=== PATIENT | female | born 1990 | race Caucasian/White ===

== ENCOUNTER 2017-08-12 06:54 | Emergency (ER) | payer OTHER | END 2017-08-12 07:40 | disposition home or self-care (01) | LOC: M ED 06:54 | DX: O99.89 Other specified diseases and conditions complicating pregnancy, childbirth and the puerperium (principal); M25.512 Pain in left shoulder; O9A.211 Injury, poisoning and certain other consequences of external causes complicating pregnancy, first trimester; S50.01XA Contusion of right elbow, initial encounter; W10.9XXA Fall (on) (from) unspecified stairs and steps, initial encounter; Y92.009 Unspecified place in unspecified non-institutional (private) residence as the place of occurrence of the external cause; Y93.89 Activity, other specified; Y99.8 Other external cause status; Z3A.20 20 weeks gestation of pregnancy | CPT/HCPCS: 99283 ==

== ENCOUNTER 2017-12-19 11:34 | Outpatient (CLI) | payer OTHER | END 2017-12-19 13:10 | disposition home or self-care (01) | LOC: M LDO 11:34 | DX: O26.893 Other specified pregnancy related conditions, third trimester (principal); R09.81 Nasal congestion; R51 Headache; Z3A.38 38 weeks gestation of pregnancy | CPT/HCPCS: 59025 ==

== ENCOUNTER 2017-12-25 10:21 | Inpatient (IN) | payer OTHER ==
[2017-12-25] MEDS ORDERED: PENICILLIN G POTASSIUM IV 5 MU in D5W MINI-BAG PLUS 100 ML IV (11:21)
[2017-12-25] MEDS ORDERED: OXYTOCIN 30 UNITS IN 0.9% NaCl 500ML IV BAG (J2590) As Ordered (11:25)
[2017-12-25] MEDS: LACTATED RINGER'S 1000 ML IV (12:27)
[2017-12-25] MEDS: LR 1,000 ML IV ×3 (12:28→20:50)
[2017-12-25] MEDS: PENICILLIN G POTASSIUM IV 5 MU in D5W MINI-BAG PLUS 100 ML IV (12:50)
[2017-12-25 12:51] LABS: HEMATOCRIT 37.9 % (36.0-47.0); HEMOGLOBIN 12.5 g/dl (12.0-15.5); MEAN CORPUSCULAR HEMOGLOBIN 27.6 pg (27.0-33.0); MEAN CORPUSCULAR VOLUME 83.7 fl (80.0-96.0); PLATELET COUNT, AUTOMATED 388 10^3/uL (150-450); RED BLOOD COUNT 4.53 10^6/uL (4.00-5.40); RED CELL DISTRIBUTION WIDTH 14.3 % (11.5-14.5); WHITE BLOOD COUNT 14.6 10^3/uL (4.0-10.0)
[2017-12-25] MEDS ORDERED: MORPHINE 4 MG/ML 1ML VIAL/SYRINGE (J2270) As Ordered (13:23)
[2017-12-25] MEDS: MORPHINE 4 MG/ML 1ML VIAL/SYRINGE (J2270) IV (13:33)
[2017-12-25] MEDS ORDERED: DIBUCAINE 1% OINTMENT 30GM TOP (13:45)
[2017-12-25] MEDS ORDERED: PROMETHAZINE 25 MG TAB PO (13:45)
[2017-12-25] MEDS ORDERED: ACETAMINOPHEN 500 MG TAB PO (13:45)
[2017-12-25] MEDS ORDERED: MOM 30ML SUSPENSION UDC PO (13:45)
[2017-12-25] MEDS ORDERED: RHOGAM 300 MCG (1500 IU) INJ (J2790) IM (13:45)
[2017-12-25] MEDS ORDERED: MEASLES,MUMPS,RUBELLA VACCINE INJ (MMR-II) (90707) SC (13:45)
[2017-12-25] MEDS ORDERED: DOCUSATE SODIUM 100 MG CAP PO (13:45)
[2017-12-25] MEDS ORDERED: ONDANSETRON 4MG/2ML VIAL (J2405) IV (13:45)
[2017-12-25] MEDS ORDERED: METHYLERGONOVINE MALEATE 0.2 MG TAB PO (13:45)
[2017-12-25] MEDS ORDERED: PENICILLIN G POTASSIUM IV 2.5 MU in APPROPRIATE DILUENT 1 EA IV ×2 (15:30→17:00)
[2017-12-25] MEDS: LIDOCAINE 1% MDV INJ 50 ML VIAL SC (18:45)
[2017-12-25] MEDS: IBUPROFEN 800 MG TAB PO (19:15)
[2017-12-26] MEDS: PRENATAL VITAMINS CHEWABLE TABLET PO (08:37)
[2017-12-26] MEDS ORDERED: LIDOCAINE 1% MDV INJ 50 ML VIAL SC (14:00)
== END 2017-12-26 19:20 | disposition home or self-care (01) | DRG 775 ==
LOC: M LDO 10:21 → M LDI 11:15 → M OBS 14:47
PROVIDERS: Student in an Organized Health Care Education/Training Program
PROC: 10E0XZZ Delivery of Products of Conception, External Approach (ICD-10-PCS; principal; 2017-12-25)
PROC: 0KQM0ZZ Repair Perineum Muscle, Open Approach (ICD-10-PCS; 2017-12-25)
PROC: 10907ZC Drainage of Amniotic Fluid, Therapeutic from Products of Conception, Via Natural or Artificial Opening (ICD-10-PCS; 2017-12-25)
DX: O62.3 Precipitate labor (principal); Z3A.39 39 weeks gestation of pregnancy; O99.824 Streptococcus B carrier state complicating childbirth; O70.1 Second degree perineal laceration during delivery; Z37.0 Single live birth